=== PATIENT | female | born 1995 | race Caucasian/White ===

== ENCOUNTER 2019-01-05 22:43 | Emergency (ER) | payer SELFPAY ==
[2019-01-06] MEDS ORDERED: Lidocaine 1% w/Epinephrine 1:100K 20 ML VIAL ONE (01:24)
--- NOTE | 2019-01-06 07:35 | RAD ---
FXR Elbow Lt 2 View History: [Foreign body] Comparison: Radiograph from yesterday Findings: Radiograph prior day the superficial linear soft tissue foreign body is visualized. No join t effusion. No fracture or malalignment. The thin foreign body measures approximately 13 mm in length and less than a millimeter in width. Impression: Similar appearance of the superficial linear radiopaque foreign object.
== END 2019-01-06 02:04 | disposition home or self-care (01) ==
LOC: ERS 22:43
DX: S50.852A Superficial foreign body of left forearm, initial encounter (principal); F41.9 Anxiety disorder, unspecified; F31.9 Bipolar disorder, unspecified; F17.210 Nicotine dependence, cigarettes, uncomplicated; Z71.6 Tobacco abuse counseling; W45.8XXA Other foreign body or object entering through skin, initial encounter
CPT/HCPCS: 99406; J2001